=== PATIENT | female | born 1985 | race Hispanic/Latino ===

== ENCOUNTER 2024-10-27 02:44 | Emergency (ER) | payer SELFPAY ==
[~2024-10-27] VITALS: Ht 154.9 cm; Wt 79.4 kg
--- NOTE | 2024-10-27 03:06 | ERN ---
ED Note History of Present Illness Stated Complaint: CHEST PAIN, N/V Chief Complaint: Chest Pain Time Seen by MD: 02:50 Dictation: This is a 39-year-old female who presented to the emergency room at [facility] with the [facility] patient ID and a pulse ox probe. She has been experiencing chest pressure nausea and vomitings 1 hour prior to the presentation. She had 2 episodes of vomitings and she describes the chest pain as midsternal pressure. No fever chills or rigors. No hematemesis or melena. She apparently left [facility] due to long wait time No other family members are sick. patient did not eat dinner but ate a large discern as her dinner. An hour to 2 hours after eating the sweet she began having the symptoms as described above. Patient has not had any routine health care and never seen a medical doctor and she denied being a diabetic and has not been on any medications. At [facility] her sugar was 260. Temp 98.8 pulse 85 respirations 20 blood pressure 164/98 with a pulse oximetry of 98% on room air Her chronic medical problems include diabetes mellitus type 2 and history of nephrolithiasis as listed in the old records Allergies: Coded Allergies: No Known Drug Allergies (Unverified Allergy, Unknown, 10/27/24) Past Medical History Past Medical History: Diabetes-Type II, Kidney Stone Surgical History: Other Surgical History Other: KIDNEY STONES Family History: Negative Social History: Negative RN Note Reviewed/Agreed w/PFSH: Yes Review of System Dictation Constitutional: Negative for fever,chills, and weight loss Eyes: Negative for injury, pain,redness, and discharge ENT: Negative for injury,pain or swelling Cardiovascular: Positive for chest pressure, denied palpitations, and edema Respiratory: Negative for shortness of breath, cough, and wheezing, Abdomen/GI: Positive for abdominal pain, nausea, vomiting, denied diarrhea, and constipation Back: Negative for injury and pain : Negative for injury, bleeding and discharge MS/Extremity: Negative for injury and deformity Skin: Negative for rash, and discoloration Neuro: Negative for headache, weakness, numbness, tingling, and seizure Psych: Negative for suicide ideation, homicidal ideation, and hallucinations Initial Vital Sign VS Vital Signs Date Time Temp Pulse Resp B/P (MAP) Pulse Ox O2 Delivery O2 Flow Rate FiO2 10/27/24 02:46 98.8 85 20 164/98 98 Room Air 10/27/24 03:01 0 21 Physical Exam Dictation General: awake, alert, NAD Head/Face: Normocephalic, atraumatic Eyes: PERRL, EOMI, vision at baseline ENT: oral cavity clear, TMs clear, no signs of infection Neck: Trachea midline, supple, no nuchal rigidity Cardiovascular: RRR, normal S1/S2, No MRGs, no JVD Respiratory: CTAB, no respiratory distress, No rales or wheezes Abdomen: Soft, non-tender, non-distended, normal bowel sounds, no guarding or rebound. Skin: Warm, dry, normal turgor, no rash MS/Extremity: Pulses equal, no cyanosis, neurovascular intact, FROM Neuro: COAx4, GCS 15, strength 5/5, CN 2-12 intact, normal cerebellar exam, normal gait, Psych: Normal behavior, mood, and affect normal Extremities-trace edema without any palpable cords, Homans sign is negative Results (Laboratory/Radiology) Laboratory/Radiology Laboratory Tests Test 10/27/24 02:56 10/27/24 03:31 10/27/24 06:12 White Blood Count 9.5 K/uL (4.8-10.8) Red Blood Count 4.89 MIL/uL (4.00-5.50) Hemoglobin 14.1 g/dL (12.0-16.0) Hematocrit 42.1 % (36-48) Mean Corpuscular Volume 86.1 fL (79-99) Mean Corpuscular Hemoglobin 28.8 pg (27.0-33.0) Mean Corpuscular Hemoglobin Concent 33.5 g/dL (32.0-36.0) Red Cell Distribution Width 13.3 % (11.0-15.5) Platelet Count 203 K/uL (130-400) Mean Platelet Volume 12.2 fL (7.5-10.5) H Immature Granulocyte % (Auto) 0.7 % (0-1) Neutrophils (%) (Auto) 56.8 % (40.0-77.0) Lymphocytes (%) (Auto) 35.7 % (21.0-51.0) Monocytes (%) (Auto) 3.9 % (3.0-13.0) Eosinophils (%) (Auto) 2.5 % (0.0-8.0) Basophils (%) (Auto) 0.4 % (0.0-5.0) Neutrophils # (Auto) 5.4 K/uL (1.8-7.7) Lymphocytes # (Auto) 3.4 K/uL (1.0-4.8) Monocytes # (Auto) 0.4 K/uL (0.1-1.0) Eosinophils # (Auto) 0.24 K/uL (0.00-0.70) Basophils # (Auto) 0.04 K/uL (0.00-0.20) Absolute Immature Granulocyte (auto 0.07 K/uL (0-1) Nucleated Red Blood Cells 0.0 % (0.0-0.19) Sodium Level 134 mmol/L (136-145) L Potassium Level 3.9 mmol/L (3.5-5.1) Chloride Level 96 mmol/L (101-111) L Carbon Dioxide Level 27 mmol/L (21-32) Blood Urea Nitrogen 11 mg/dL (7-18) Creatinine 0.5 mg/dL (0.5-1.0) Glomerular Filtration Rate Calc 122 mL/min (>90) Random Glucose 298 mg/dL (70-105) H Total Calcium 8.8 mg/dL (8.5-10.1) Total Creatine Kinase 75 U/L (21-232) Troponin I High Sensitivity < 4 ng/L (4-50) L Lipase 39 U/L (16-77) Influenza Type A Antigen Negative For Type A Influenza Type B Antigen Negative For Type B SARS-CoV-2, RNA, NAAT NEGATIVE SARS CoV-2 Urine Color LIGHT-YELLOW (YELLOW) Urine Appearance CLEAR (CLEAR) Urine pH 6.0 (5.0-8.0) Urine Specific [place] 1.015 (1.001-1.031) Urine Protein 30 mg/dL (NEGATIVE) H Urine Glucose (UA) >=1000 mg/dL (NEGATIVE) H Urine Ketones NEGATIVE mg/dL (NEGATIVE) Urine Occult Blood NEGATIVE (NEGATIVE) Urine Nitrate NEGATIVE (NEGATIVE) Urine Bilirubin NEGATIVE mg/dL (NEGATIVE) Urine Urobilinogen 0.2 mg/dL (0.2-1.0) Urine Leukocyte Esterase NEGATIVE Peter/uL Urine RBC None /HPF (0-1) Urine WBC 2-5 /HPF (0-1) H Urine Squamous Epithelial Cells RARE /HPF (0-2) Urine Calcium Oxalate Crystals RARE /LPF (None Seen) Urine Bacteria None /HPF (None Seen) Urine HCG, Qualitative NEGATIVE (NEGATIVE) Urine Opiates Screen NEGATIVE (NEGATIVE) Urine Barbiturates Screen NEGATIVE (NEGATIVE) Urine Phencyclidine Screen NEGATIVE (NEGATIVE) Urine Amphetamines Screen NEGATIVE (NEGATIVE) Urine Benzodiazepines Screen NEGATIVE (NEGATIVE) Urine Cocaine Screen NEGATIVE (NEGATIVE) Urine Marijuana (THC) Screen NEGATIVE (NEGATIVE) Whole Blood Glucose 337 MG/DL (70-110) H Labs Reviewed?: Yes EKG Comment: Twelve lead EKG done on 10/27/2024 at 2:54 a.m. showed a heart rate of 82, MN interval 192, QRS duration 77, QT/QTC 391/457 Impression normal sinus rhythm with nonspecific changes probable left atrial enlargement. No acute ST-T elevations noted. EKG rhythm strip shows a normal sinus rhythm with no acute STT wave changes. QTC is slightly prolonged at 457 seconds Interpreted by ER MD Dr. Fuentes ED Course ED Course Orders Procedure Category Date Status Time Vital Signs Per CPOE 10/27/24 Transmitted Routine 02:49 Chest 1vw RAD 10/27/24 Resulted 02:49 12 Lead Ekg Tracing- EKG 10/27/24 Logged Technical 02:49 Oxygen By Nc/Pulse Ox CPOE 10/27/24 Transmitted 02:49 Maintain Iv CPOE 10/27/24 Transmitted 02:49 Iv Insertion CPOE 10/27/24 Transmitted 02:49 Cardiac Monitoring CPOE 10/27/24 Transmitted 02:49 Pulse Oximetry With CPOE 10/27/24 Transmitted Vs And Prn 02:49 Cbc With Differential LAB 10/27/24 Complete 02:49 Activity: Br W/Brp CPOE 10/27/24 Transmitted With Assist 02:49 Creatine Kinase, Total LAB 10/27/24 Complete 02:49 Troponin I High LAB 10/27/24 Complete Sensitivity 02:49 Urinalysis Profile LAB 10/27/24 Complete 02:49 Basic Metabolic Panel LAB 10/27/24 Complete 02:49 Drug Screen Urine LAB 10/27/24 Complete 02:58 ,Urine Test LAB 10/27/24 Complete 02:58 0.9%Nacl 1000ml (Ns PHA 10/27/24 Complete 1000ml) 03:00 Ondansetron 4mg Inj PHA 10/27/24 Complete (Zofran 4mg Inj) 03:00 Famotidine 20mg Vial PHA 10/27/24 Complete (Pepcid 20mg Vial) 03:00 Lipase LAB 10/27/24 Complete 02:56 Covid Rna Naat LAB 10/27/24 Complete 03:26 Influenza Type A & B, LAB 10/27/24 Complete Rapid 03:26 Rapid (Group A Strep) LAB 10/27/24 Logged 03:36 Insulin Regular, PHA 10/27/24 Complete Human 3ml (Humulin R 06:00 0.9% Nacl 500ml PHA 10/27/24 Complete Iv.Soln (Ns 500ml 06:00 Random Accucheck At CPOE 10/27/24 Transmitted Bedside 06:04 Current Medications Medications (Trade) Dose Ordered Sig/Emerita Route PRN Reason Start Time Stop Time Status Last Admin Dose Admin Famotidine (Pepcid 20mg Vial) 20 mg ONCE ONCE IV 10/27/24 03:00 10/27/24 03:03 DC 10/27/24 03:33 Insulin Human Regular (humuLIN R 100 UNIT/ML 3ML) 5 unit ONCE ONCE SQ 10/27/24 06:00 10/27/24 06:01 DC 10/27/24 06:22 Ondansetron HCl (zoFRAN 4MG INJ) 4 mg ONCE ONCE IVP 10/27/24 03:00 10/27/24 03:03 DC 10/27/24 03:33 Sodium Chloride 500 ml @ 0 mls/hr ONCE ONCE IV 10/27/24 06:00 10/27/24 06:01 DC 10/27/24 06:22 Sodium Chloride 1,000 ml @ 0 mls/hr ONCE ONCE IV 10/27/24 03:00 10/27/24 03:03 DC 10/27/24 03:33 Vital Signs Date Time Temp Pulse Resp B/P (MAP) Pulse Ox O2 Delivery O2 Flow Rate FiO2 10/27/24 06:36 70 18 121/81 94 Room Air* 0 10/27/24 05:23 83 18 126/84 94 Room Air* 0 10/27/24 03:45 84 18 136/86 94 Room Air* 0 10/27/24 03:01 81 18 177/103 94 Room Air* 0 10/27/24 02:46 98.8 85 20 164/98 98 Room Air We will perform diagnostic labs, advanced imaging and administer medications according to the patient's complaint. Once the results are available, will review and personally interpreted the labs to rule out any acute life- threatening emergency the trach require immediate intervention and treatment. I will then re-evaluate the patient after treatment and diagnostic exams have return to determine whether the patient requires any further testing, can safely be discharged home or need further admission to hospital for additional treatment and evaluation. 4:30 a.m. Labs reviewed CBC with a normal limits. BNP 7 is significant for a sodium of 134 BUN creatinine are 11 and 0.5 with a glucose of 299. Lipase 39 troponins less than 4 UDS negative for any recreational drugs. Urine test is negative urinalysis is unremarkable. Swabs for influenza and COVID are negative. 5:30 a.m. patient stated that she was still a little dizzy. Additional fluids in view of hyperglycemia and a dose of regular insulin .Patient needs to follow up once discharged with the primary care physician to get established for diabetes management and monitoring. HEART Score Response (Comments) Value History: Low suspicion (0) 0 EKG: Normal 0 Age: < 45yrs (0) 0 Risk Factors: 1-2 risk factors (+1) 1 Initial Troponin: Normal limit (0) 0 HEART Score Risk: Low Risk for MACE (1-3) Total 1 Medical Decision Making MDM Differential diagnosis: Gastritis, gastroesophageal reflux disease, esophagitis, DKA, cholecystitis Rationale: Tests considered and ordered secondary to shared decision making include: Previous outside records reviewed: Old ER visits. Risk of complication and/or morbidity or mortality of patient management: None Medications-Per medication reconciliation Need for hospitalization: Patient does not meet criteria for hospitalization. Need for emergency major/minor surgery: No There are no social concerns with this patient. Prescription drug management Prescriptions will include symptomatic care Patient's prior external medical records from other ER visits were reviewed by me as indicated. Prior testing and results from previous visits were reviewed. Prior tests were taken into account with medical decision making and resource utilization, independent historian/historians were used to obtain complete medical history. I independently interpreted the test that were performed, results were reviewed by me and considered findings on radiology if ordered. Medical management and examination interpretation discussions were had by me with other qualified healthcare professionals as indicated for the patient's care. Problem List Problem List: (1) Gastritis (2) Diabetes mellitus with hyperglycemia DX & DISP Disposition: Discharge Departure Impression: Primary Impression: Gastritis Additional Impressions: Diabetes mellitus with hyperglycemia, Esophagitis, Patient noncompliance, general Condition: Stable Additional Instructions: Patient and the caregiver have been informed of all the diagnostic tests and the imaging conducted during the today's visit to the emergency room and has verbal ized understanding of the results I have personally reviewed and interpreted all diagnostic exams performed here in the ER today as well as the vital signs documented by the nursing staff. The patient is now being discharged to home and should follow up with the primary care physician or the specialist as directed by the ER staff. Follow-up with primary care provider in 1 to 2 days. Take medications as directed here in the emergency room. Okay to continue home medications unless otherwise discussed during your visit in the emergency room today. Return to your nearest emergency room if symptoms worsen or if there is no improvement. Call 911 if you need immediate assistance. Take Tylenol or Motrin [id number] as needed and if no contraindications are present. Increase oral hydration. A wound culture or urine culture was ordered here in the emergency room department please follow-up with primary care provider and advise them to get repeat ports from our facility. If you had any Adam wrap/splints th at were applied here, please do not remove them until you see your primary care or specialty. A list of primary care physicians was furnished to the patient and she was recommended to make an appointment iram to have her diabetes addressed and monitored closely. Referrals: SELF,REFERRAL (PCP) KE FUENTES MD Oct 27, 2024 03:06
[2024-10-27 03:19] LABS: CREATININE 0.5 mg/dL (0.5-1.0); GLOMERULAR FILTR. RATE CALC 122.0 mL/min (>90); GLUCOSE,RANDOM 298.0 mg/dL (70-105); SODIUM SERUM 134.0 mmol/L (136-145); UREA NITROGEN, BLOOD 11.0 mg/dL (7-18)
[2024-10-27 03:20] LABS: IMMATURE GRANULOCYTE ABSOLUTE 0.07 K/uL (0-1); NUCLEATED RED BLOOD CELLS 0.0 % (0.0-0.19); PLATELET COUNT (AUTO) 203 K/uL (130-400); RED BLOOD CELL COUNT(AUTO) 4.89 MIL/uL (4.00-5.50); RED CELL DISTRIBUTION WIDTH 13.3 % (11.0-15.5); WHITE BLOOD COUNT (AUTO) 9.5 K/uL (4.8-10.8)
[2024-10-27 03:23] LABS: CREATINE KINASE, TOTAL 75.0 U/L (21-232)
[2024-10-27] MEDS: 0.9%NACL 1000ML 1,000 ML IV ONE (03:33)
[2024-10-27] MEDS: FAMOTIDINE 20MG VIAL IV ONE (03:33)
[2024-10-27 03:55] LABS: APPEARANCE,URINE CLEAR (CLEAR); GLUCOSE, URINE (UA) >=1000 mg/dL (NEGATIVE); LEUKOCYTE ESTERASE ,URINE NEGATIVE Leu/uL (NEGATIVE); NITRATE,URINE NEGATIVE (NEGATIVE); OCCULT BLOOD,URINE NEGATIVE (NEGATIVE)
[2024-10-27 03:56] LABS: ADD UA MICROSCOPIC YES
[2024-10-27 03:57] LABS: CALCIUM OXALATE CRYSTALS,UR RARE /LPF (None Seen); HCG,QUALITATIVE URINE NEGATIVE (NEGATIVE); SQUAMOUS EPITHELIAL CELL,UR RARE /HPF (0-2)
[2024-10-27 04:02] LABS: AMPHET/METH SCREEN,URINE NEGATIVE (NEGATIVE); BARBITURATE SCREEN, URINE NEGATIVE (NEGATIVE); CANNABINOID SCREEN,URINE NEGATIVE (NEGATIVE); COCAINE SCREEN,URINE NEGATIVE (NEGATIVE)
[2024-10-27 04:02] LABS: SARS-CoV-2, RNA, NAAT NEGATIVE SARS CoV-2 (NEGATIVE)
[2024-10-27 04:06] LABS: INFLUENZA TYPE A Negative For Type A (NEGATIVE); INFLUENZA TYPE B Negative For Type B (NEGATIVE)
--- NOTE | 2024-10-27 05:13 | HMCIMG ---
EXAM: CR Chest, 1 view CLINICAL HISTORY: Chest pain. COMPARISON: None provided. FINDINGS: Left lower lobe airspace disease. The remaining lung lynn are clear. No pleural effusion or pneumothorax. The cardiomediastinal silhouette is within normal limits. No acute osseous abnormality. IMPRESSION: Left lower lobe airspace disease could be subsegmental atelectasis or pneumonia. /[place]
[2024-10-27] MEDS: 0.9% NACL 500ML IV.SOLN 500 ML IV ONE (06:22)
--- NOTE | 2024-10-27 07:30 | EKG ---
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
[2024-10-27 07:35] VITALS: BP 124/83; PULSE 74; RESP 19; TEMP 98.5; O2SAT 94
== END 2024-10-27 07:47 | disposition home or self-care (01) ==
LOC: EDH 02:44
DX: K29.70 Gastritis, unspecified, without bleeding (principal); K20.90 Esophagitis, unspecified without bleeding; E11.65 Type 2 diabetes mellitus with hyperglycemia; Z91.199 Patient's noncompliance with other medical treatment and regimen due to unspecified reason; Z20.822 Contact with and (suspected) exposure to COVID-19
CPT/HCPCS: 99285; 96374; 71045; 87635; 96375; 82550; 84484; 80048; 80305; 83690; 85025; 87804 ×2; 82948 ×2; 81025; 36415; 93005; 81001; 96372 ×2; J1815 ×2; J7040; J3490; J7030; J2405